=== PATIENT | female | born 1970 | race Caucasian/White ===

== ENCOUNTER → 2018-03-24 | Outpatient (CLI) | payer OTHER | END | disposition home or self-care (01) | LOC: SURG 11:34 | PROVIDERS: ATTEND Anesthesiology | DX: M54.12 Radiculopathy, cervical region (principal); M18.11 Unilateral primary osteoarthritis of first carpometacarpal joint, right hand; M25.531 Pain in right wrist | CPT/HCPCS: 99214 ==